=== PATIENT | female | born 1935 | race Caucasian/White ===

== ENCOUNTER 2018-05-25 13:17 | Inpatient (IN) | payer MEDICARE, OTHER ==
[~2018-05-25] VITALS: Ht 167.6 cm; Wt 60.9 kg
[~2018-05-25 13:17] MED LIST: ASPI-496 PO; ATOR40TA78 PO; CEFD300C37 PO; CEPH-368 PO; CHOL200074 PO; CIPR500T87 PO; CLOP75TA52 PO; FOLI-17 PO; FURO-92 PO; FURO40TA6 PO; GABA300C PO; GABA800T2 PO; HYDR-3237 PO; HYDR200T5 PO; ISOS30TA21 PO; LEVO75CA2 PO; LOSA50TA7 PO; METH2.5T PO; METO25TA35 PO; NAPR220C2 PO; OMEP-110 PO; OXYC10TA6 PO; POLY17PO5 PO; POTA10CA PO; ROPI2TAB6 PO; SPIR1TAB3 PO; TICA90TA PO; VITA1TAB19 PO
[2018-05-25 13:55] LABS: BASOPHILS # (AUTO) 0.01 x10^3/uL (0-0.1); BASOPHILS % (AUTO) 0 % (0-1); EOSINOPHILS # (AUTO) 0.06 x10^3/uL (0-0.4); EOSINOPHILS % (AUTO) 1 % (1-7); LYMPHOCYTES # (AUTO) 2.29 x10^3/uL (1-3.4); LYMPHOCYTES % (AUTO) 30 % (22-44); MD NO; MEAN CORPUSCULAR HEMOGLOBIN 30.9 pg (27.0-34.8); MEAN CORPUSCULAR HGB CONC 33.6 g/dL (32.4-35.8); MEAN CORPUSCULAR VOLUME 91.9 fL (80-100); MEAN PLATELET VOLUME 8.4 fL (7.4-10.4); MONOCYTES # (AUTO) 0.55 x10^3/uL (0.2-0.8); MONOCYTES % (AUTO) 7 % (2-9); NEUTROPHILS # (AUTO) 4.62 x10^3/uL (1.8-6.8); NEUTROPHILS % (AUTO) 61 % (42-75); PLATELET COUNT 232 x10^3/uL (130-400); RED BLOOD COUNT 4.22 x10^6/uL (3.82-5.3); RED CELL DISTRIBUTION WIDTH 13.8 % (9.6-15.2)
[2018-05-25 14:08] LABS: ALANINE AMINOTRANSFERASE 62 U/L (12-78); ALBUMIN 3.4 g/dL (3.4-5.0); ANION GAP 6 mmol/L (5-15); CALCIUM 7.7 mg/dL (8.5-10.1); CHLORIDE 111 mmol/L (98-107); CREATININE 0.95 mg/dL (0.55-1.02)
[2018-05-25 14:10] LABS: ALKALINE PHOSPHATASE 95 U/L (45-117); BILIRUBIN,TOTAL 0.7 mg/dL (0.2-1.0); TOTAL PROTEIN 6.7 g/dL (6.4-8.2)
[2018-05-25 14:13] LABS: TROPONIN I < 0.015 ng/mL (0.000-0.045)
[2018-05-25] MEDS ORDERED: POLYETHYLENE GLYCOL 17 GM PACKET PO PRN (15:00)
[2018-05-25] MEDS ORDERED: BISACODYL 10 MG SUPP PR PRN (15:00)
[2018-05-25] MEDS ORDERED: HYDROcodone/APAP 5/325 TABLET PO PRN (15:00)
[2018-05-25] MEDS ORDERED: SODIUM CHLORIDE 0.9% 1,000 ML IV SCH (15:00)
[2018-05-25] MEDS ORDERED: ACETAMINOPHEN 325 MG TABLET PO PRN (15:00)
[2018-05-25] MEDS ORDERED: ENALAPRILAT 1.25 MG/ML, 2ML IVPush PRN (15:00)
[2018-05-25] MEDS ORDERED: ONDANSETRON 2MG/ML, 2ML IVPush PRN (15:00)
[2018-05-25] MEDS: GABAPENTIN 300 MG CAPSULE PO SCH ×2 (16:00→20:19)
[2018-05-25 16:12] VITALS: BP 99/52
[2018-05-25] MEDS ORDERED: ENOXAPARIN 40 MG/0.4 ML SQ SCH (17:00)
[2018-05-25 17:25] VITALS: BP 132/64
[2018-05-25 17:27] VITALS: BP 123/58
[2018-05-25 17:28] VITALS: BP 128/56
[2018-05-25 17:30] VITALS: BP 102/47
[2018-05-25 18:36] LABS: TROPONIN I < 0.015 ng/mL (0.000-0.045)
[2018-05-25 20:11] VITALS: BP 111/57
[2018-05-25] MEDS: ROPINIROLE 1MG TABLET PO SCH (20:19)
[2018-05-25] MEDS ORDERED: DOCUSATE 100 MG CAPSULE PO PRN (21:00)
[2018-05-26 01:01] LABS: TROPONIN I < 0.015 ng/mL (0.000-0.045)
[2018-05-26 01:20] VITALS: BP 113/54
[2018-05-26 05:37] LABS: CALCIUM 8.2 mg/dL (8.5-10.1); CHLORIDE 112 mmol/L (98-107)
[2018-05-26 05:51] LABS: ANION GAP 6 mmol/L (5-15); CHOL/HDL RATIO 4.1; CHOLESTEROL, TOTAL 127 mg/dL (140-239); CREATININE 0.93 mg/dL (0.55-1.02); HDL CHOL % 24 % (28-40); HDL CHOLESTEROL (DIRECT) 31 mg/dL (40-60); LDL CHOLESTEROL,CALCULATED 55 mg/dL (54-169); LDL/HDL RATIO 1.8 (0.5-3.0); TRIGLYCERIDES 205 mg/dL (50-200); VLDL CHOLESTEROL 41 mg/dL (0-25)
[2018-05-26] MEDS ORDERED: MYCO500T PO (05:52)
[2018-05-26] MEDS ORDERED: ASPIRIN 325 MG TABLET EC PO SCH (06:00)
[2018-05-26] MEDS ORDERED: LEVOTHYROXINE 75 MCG TABLET PO SCH (06:00)
[2018-05-26 07:29] VITALS: BP 138/69
[2018-05-26] MEDS ORDERED: REGADENOSON 0.4 MG/5 ML SYRINGE ONE (07:35)
[2018-05-26] MEDS ORDERED: FOLIC ACID 1 MG TABLET PO SCH (09:00)
[2018-05-26] MEDS ORDERED: CHOLECALCIFEROL 1,000 UNIT TABLET PO SCH (09:00)
[2018-05-26] MEDS ORDERED: CLOPIDOGREL 75 MG TABLET PO SCH (09:00)
[2018-05-26] MEDS ORDERED: ISOSORBIDE DINITRATE 30 MG TABLET PO SCH (09:00)
[2018-05-26] MEDS ORDERED: TEMPLATE NON-FORMULARY MED. (Aspirin** (Aspir 81**) 81 MG) PO SCH (09:00)
[2018-05-26] MEDS ORDERED: ATORVASTATIN 40 MG TABLET PO SCH (09:00)
[2018-05-26] MEDS ORDERED: MULTIVITS,STRESS FORMULA 1 TABLET PO SCH (09:00)
[2018-05-26] MEDS: GABAPENTIN 300 MG CAPSULE PO SCH (11:04)
[2018-05-26] MEDS: ROPINIROLE 1MG TABLET PO SCH (11:06)
== END 2018-05-26 14:35 | disposition home or self-care (01) | DRG 309 ==
LOC: ED 14:40 → EDIP 14:41 → ED 14:42 → 5SO 16:08 → DCLOUNGE 05-26 14:21
PROVIDERS: ADMIT Hospitalist; ATTEND Hospitalist
DX: R00.1 Bradycardia, unspecified (principal); I50.32 Chronic diastolic (congestive) heart failure; I11.0 Hypertensive heart disease with heart failure; R07.9 Chest pain, unspecified; I25.10 Atherosclerotic heart disease of native coronary artery without angina pectoris; I25.2 Old myocardial infarction; E03.9 Hypothyroidism, unspecified; I34.0 Nonrheumatic mitral (valve) insufficiency; G25.81 Restless legs syndrome; E78.5 Hyperlipidemia, unspecified; K21.9 Gastro-esophageal reflux disease without esophagitis; M06.9 Rheumatoid arthritis, unspecified; Z66 Do not resuscitate; Z82.0 Family history of epilepsy and other diseases of the nervous system; Z82.49 Family history of ischemic heart disease and other diseases of the circulatory system; Z87.891 Personal history of nicotine dependence; Z83.3 Family history of diabetes mellitus; Z95.1 Presence of aortocoronary bypass graft; Z90.710 Acquired absence of both cervix and uterus; Z95.5 Presence of coronary angioplasty implant and graft; Z90.49 Acquired absence of other specified parts of digestive tract
CPT/HCPCS: 36415; 71045; 78452; 80048; 80053; 80061; 83735; 84443; 84484; 85025; 93005; 93017; 99285; G0378; J1650; J2785; A9502; C9898; J7030

== ENCOUNTER 2021-02-26 14:25 | Inpatient (IN) | payer MEDICARE, OTHER ==
[~2021-02-26] VITALS: Ht 165.1 cm; Wt 57.2 kg
[~2021-02-26 14:25] MED LIST changes: +ACID1TAB PO; -FOLI-17 PO; +FOLI1TAB32 PO; -GABA800T2 PO; +GABA800T5 PO; +GLUC1TAB53 PO; +LOSA50TA14 PO; -LOSA50TA7 PO; +MYCO500T PO
--- NOTE | 2021-02-26 15:52 | NUR ---
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
--- NOTE | 2021-02-26 16:00 | NUR ---
PT PLACED ON ALL ROOM MONITORING. PT CHILLED, AFEBRILE, WARM BLANKET PROVIDED. MARISELA WARMER AVAILABLE.
[2021-02-26 16:21] LABS: ALBUMIN 3.3 g/dL (3.4-5.0); ANION GAP 6 mmol/L (5-15); CALCIUM 8.4 mg/dL (8.5-10.1); CHLORIDE 102 mmol/L (98-107); CREATININE 0.84 mg/dL (0.55-1.02)
[2021-02-26 16:23] LABS: BASOPHILS % (AUTO) 0 % (0-1); EOSINOPHILS % (AUTO) 0 % (1-7); LYMPHOCYTES % (AUTO) 26 % (22-44); MEAN CORPUSCULAR HEMOGLOBIN 30.6 pg (27.0-34.8); MEAN CORPUSCULAR HGB CONC 34.5 g/dL (32.4-35.8); MEAN PLATELET VOLUME 8.4 fL (7.4-10.4); MONOCYTES % (AUTO) 10 % (2-9); NEUTROPHILS % (AUTO) 63 % (42-75); PLATELET COUNT 197 x10^3/uL (130-400); RED BLOOD COUNT 4.09 x10^6/uL (3.82-5.3)
--- NOTE | 2021-02-26 16:30 | NUR ---
PT ASSISTED UP TO BSC, ONE PERSON ASSIST.
[2021-02-26] MEDS ORDERED: DOXYCYCLINE 100 MG in DEXTROSE 5% 250 ML IV SCH (17:00)
[2021-02-26] MEDS ORDERED: CEFTRIAXONE 1,000 MG in DEXTROSE 5% 50 ML IVPB ONE (17:00)
[2021-02-26] MEDS ORDERED: ROPINIROLE 1MG TABLET PO ONE (17:30)
--- NOTE | 2021-02-26 17:30 | NUR ---
IV PLACED, BC X 1 DRAWN WITH START. MED REC COMPLETED TO BEST OF PT'S RECOLLECTION AND WITH PROVIDED LIST. PT AND FAMILY UPDATED ON POC. CALL LIGHT WITHIN REACH.
--- NOTE | 2021-02-26 17:58 | NUR ---
COVID SWAB COLLECTED, WALKED TO LAB. ROCEPHIN INFUSING AFTER BC X 2 CONFIRMED DRAWN.
[2021-02-26] MEDS ORDERED: SODIUM CHLORIDE 0.9% 1,000 ML IV SCH (18:00)
[2021-02-26] MEDS ORDERED: GUAIFENESIN/DM 200-20MG, 10ML UDC PO PRN (18:00)
[2021-02-26] MEDS ORDERED: ONDANSETRON ODT 4 MG PO PRN (18:00)
[2021-02-26] MEDS ORDERED: ENALAPRILAT 1.25 MG/ML, 2ML IVPush PRN (18:00)
[2021-02-26] MEDS ORDERED: ONDANSETRON 2MG/ML, 2ML IVPush PRN (18:00)
--- NOTE | 2021-02-26 18:00 | NUR ---
ATTEMPT TO CALL REPORT.
--- NOTE | 2021-02-26 18:27 | NUR ---
REPORT TO GEORGINA [place] READY FOR TRANSPORT TO FLOOR.
[2021-02-26] MEDS ORDERED: DOXYCYCLINE 100 MG in DEXTROSE 5% 250 ML IV ONE (20:00)
[2021-02-26] MEDS: ENOXAPARIN 40 MG/0.4 ML SQ SCH (20:05)
[2021-02-26] MEDS: OMEPRAZOLE 20 MG CAPSULE.DR PO SCH (20:05)
[2021-02-26] MEDS: GABAPENTIN 300 MG CAPSULE PO SCH (20:05)
[2021-02-26 20:30] VITALS: BP 108/69
[2021-02-27] MEDS: ACETAMINOPHEN 325 MG TABLET PO PRN ×2 (00:02→21:25)
[2021-02-27 00:03] VITALS: BP 118/50
[2021-02-27 05:33] LABS: MEAN CORPUSCULAR HEMOGLOBIN 30.9 pg (27.0-34.8); MEAN CORPUSCULAR HGB CONC 34.7 g/dL (32.4-35.8); MEAN PLATELET VOLUME 8.3 fL (7.4-10.4); PLATELET COUNT 155 x10^3/uL (130-400); RED BLOOD COUNT 3.38 x10^6/uL (3.82-5.3)
[2021-02-27 05:42] LABS: ANION GAP 8 mmol/L (5-15); CALCIUM 7.5 mg/dL (8.5-10.1); CHLORIDE 104 mmol/L (98-107)
[2021-02-27 05:44] LABS: CREATININE 0.75 mg/dL (0.55-1.02)
[2021-02-27 06:24] LABS: BAND#(MANUAL) 0.03 x10^3/uL; BANDS%(MANUAL) 1 % (0-7); EOS#(MANUAL) 0.03 x10^3/uL (0.0-0.4); EOS% (MANUAL) 1 % (1-7); LYMPH#(MANUAL) 1.62 x10^3/uL (1-3.4); LYMPHS% (MANUAL) 58 % (22-44); MONOS#(MANUAL) 0.25 x10^3/uL (0.3-2.7); MONOS% (MANUAL) 9 % (2-9); SEG#(MANUAL) 0.87 x10^3/uL (1.8-6.8); SEGS% (MANUAL) 31 % (42-75)
[2021-02-27 06:27] LABS: <PLATELET ESTIMATE> ADEQUATE; <PLT MORPHOLOGY> NORMAL PLT MORPH; <RBC MORPHOLOGY> NORMAL
[2021-02-27] MEDS: GABAPENTIN 300 MG CAPSULE PO SCH ×4 (06:40→21:22)
[2021-02-27] MEDS: OMEPRAZOLE 20 MG CAPSULE.DR PO SCH ×2 (06:40→16:11)
[2021-02-27 07:41] VITALS: BP 128/59
[2021-02-27] MEDS: POTASSIUM CHLORIDE 20 MEQ TAB.ER.PRT PO SCH (09:25)
[2021-02-27] MEDS: FOLIC ACID 1 MG TABLET PO SCH (09:26)
[2021-02-27] MEDS: ASPIRIN 81 MG TABLET EC PO SCH (09:26)
[2021-02-27] MEDS: ISOSORBIDE DINITRATE 30 MG TABLET PO SCH (09:47)
[2021-02-27] MEDS: DOXYCYCLINE 100 MG in DEXTROSE 5% 250 ML IV SCH ×2 (09:50→21:23)
[2021-02-27 12:50] VITALS: BP 89/54
[2021-02-27] MEDS: CEFTRIAXONE 1,000 MG in DEXTROSE 5% 50 ML IVPB SCH (18:27)
[2021-02-27 20:00] VITALS: BP 135/56
[2021-02-27] MEDS: ENOXAPARIN 40 MG/0.4 ML SQ SCH (21:23)
[2021-02-27] MEDS: MELATONIN 5 MG TABLET PO PRN (21:25)
[2021-02-28 01:00] VITALS: BP 127/62
[2021-02-28 05:27] LABS: MEAN CORPUSCULAR HEMOGLOBIN 30.6 pg (27.0-34.8); MEAN PLATELET VOLUME 8.9 fL (7.4-10.4); PLATELET COUNT 147 x10^3/uL (130-400); RED BLOOD COUNT 3.79 x10^6/uL (3.82-5.3); RED CELL DISTRIBUTION WIDTH 13.2 % (9.6-15.2)
[2021-02-28] MEDS: GABAPENTIN 300 MG CAPSULE PO SCH ×4 (06:11→21:13)
[2021-02-28] MEDS: OMEPRAZOLE 20 MG CAPSULE.DR PO SCH ×2 (06:11→16:21)
[2021-02-28 06:34] LABS: BAND#(MANUAL) 0.02 x10^3/uL; BANDS%(MANUAL) 1 % (0-7); LYMPH#(MANUAL) 1.46 x10^3/uL (1-3.4); LYMPHS% (MANUAL) 61 % (22-44); MONOS#(MANUAL) 0.14 x10^3/uL (0.3-2.7); MONOS% (MANUAL) 6 % (2-9); SEG#(MANUAL) 0.77 x10^3/uL (1.8-6.8); SEGS% (MANUAL) 32 % (42-75)
[2021-02-28 06:35] LABS: <PLATELET ESTIMATE> ADEQUATE; <PLT MORPHOLOGY> NORMAL PLT MORPH; <RBC MORPHOLOGY> NORMAL
[2021-02-28 06:37] VITALS: BP 160/60
[2021-02-28 08:57] LABS: ANION GAP 8 mmol/L (5-15); CALCIUM 8.3 mg/dL (8.5-10.1); CHLORIDE 108 mmol/L (98-107)
[2021-02-28 09:42] VITALS: BP 189/61
[2021-02-28 09:43] VITALS: BP 170/67
[2021-02-28] MEDS: POTASSIUM CHLORIDE 20 MEQ TAB.ER.PRT PO SCH (10:27)
[2021-02-28] MEDS: FOLIC ACID 1 MG TABLET PO SCH (10:28)
[2021-02-28] MEDS: ASPIRIN 81 MG TABLET EC PO SCH (10:28)
[2021-02-28] MEDS: DOXYCYCLINE 100 MG in DEXTROSE 5% 250 ML IV SCH ×2 (10:34→21:13)
[2021-02-28] MEDS: ISOSORBIDE DINITRATE 30 MG TABLET PO SCH (11:28)
[2021-02-28] MEDS: GUAIFENESIN/DM 200-20MG, 10ML UDC PO SCH ×2 (13:26→19:48)
[2021-02-28] MEDS: BENZONATATE 100 MG CAPSULE PO SCH ×3 (13:26→21:13)
[2021-02-28 15:16] VITALS: BP 110/54
[2021-02-28] MEDS: CEFTRIAXONE 1,000 MG in DEXTROSE 5% 50 ML IVPB SCH (18:57)
[2021-02-28 19:41] VITALS: BP 110/52
[2021-02-28] MEDS: ACETAMINOPHEN 325 MG TABLET PO PRN (19:48)
[2021-02-28] MEDS: ENOXAPARIN 40 MG/0.4 ML SQ SCH (19:48)
[2021-03-01 00:42] VITALS: BP 119/59
[2021-03-01] MEDS: GUAIFENESIN/DM 200-20MG, 10ML UDC PO SCH ×4 (01:30→20:12)
[2021-03-01 05:32] LABS: MEAN CORPUSCULAR HEMOGLOBIN 31.1 pg (27.0-34.8); MEAN CORPUSCULAR HGB CONC 34.8 g/dL (32.4-35.8); PLATELET COUNT 152 x10^3/uL (130-400); RED BLOOD COUNT 3.66 x10^6/uL (3.82-5.3); RED CELL DISTRIBUTION WIDTH 13.2 % (9.6-15.2)
[2021-03-01 05:43] LABS: ANION GAP 9 mmol/L (5-15); CALCIUM 8.3 mg/dL (8.5-10.1); CHLORIDE 107 mmol/L (98-107); CREATININE 0.81 mg/dL (0.55-1.02)
[2021-03-01] MEDS: GABAPENTIN 300 MG CAPSULE PO SCH ×4 (06:00→20:12)
[2021-03-01] MEDS: OMEPRAZOLE 20 MG CAPSULE.DR PO SCH ×2 (06:00→15:51)
[2021-03-01 06:26] LABS: SEG#(MANUAL) 0.96 x10^3/uL (1.8-6.8); SEGS% (MANUAL) 37 % (42-75)
[2021-03-01 06:27] LABS: <PLATELET ESTIMATE> ADEQUATE; <PLT MORPHOLOGY> NORMAL PLT MORPH; <RBC MORPHOLOGY> NORMAL; LYMPHS% (MANUAL) 54 % (22-44); MONOS#(MANUAL) 0.23 x10^3/uL (0.3-2.7); MONOS% (MANUAL) 9 % (2-9)
[2021-03-01] MEDS ORDERED: DEXTROSE 50%, 50ML SYRINGE IVPush ONE (08:00)
[2021-03-01 08:29] VITALS: BP 123/61
[2021-03-01] MEDS: ISOSORBIDE DINITRATE 30 MG TABLET PO SCH (09:00)
[2021-03-01] MEDS ORDERED: REMDESIVIR 200 MG in SODIUM CHLORIDE 0.9% 250 ML IVPB ONE (10:00)
[2021-03-01] MEDS ORDERED: ISOSORBIDE DINITRATE 20 MG TABLET ONE (10:41)
[2021-03-01] MEDS: DOXYCYCLINE 100 MG in DEXTROSE 5% 250 ML IV SCH (10:56)
[2021-03-01] MEDS: ASPIRIN 81 MG TABLET EC PO SCH (10:56)
[2021-03-01] MEDS: BENZONATATE 100 MG CAPSULE PO SCH ×3 (10:57→20:12)
[2021-03-01] MEDS: FOLIC ACID 1 MG TABLET PO SCH (10:57)
[2021-03-01] MEDS: POTASSIUM CHLORIDE 20 MEQ TAB.ER.PRT PO SCH (10:57)
[2021-03-01] MEDS: DEXAMETHASONE 4 MG TABLET PO SCH (10:58)
[2021-03-01] MEDS ORDERED: OMNIPAQUE 350 MG/ML, 100ML BOTTLE ONE (13:26)
[2021-03-01 15:59] VITALS: BP 134/62
[2021-03-01] MEDS: CEFTRIAXONE 1,000 MG in DEXTROSE 5% 50 ML IVPB SCH (18:00)
[2021-03-01 19:35] VITALS: BP 135/69
[2021-03-01] MEDS: DOXYCYCLINE 100MG TABLET PO SCH (20:12)
[2021-03-01] MEDS: MELATONIN 5 MG TABLET PO PRN (20:12)
[2021-03-01] MEDS: ENOXAPARIN 40 MG/0.4 ML SQ SCH (20:12)
[2021-03-02 00:34] VITALS: BP 123/53
[2021-03-02] MEDS: GUAIFENESIN/DM 200-20MG, 10ML UDC PO SCH ×4 (03:01→22:06)
[2021-03-02] MEDS: GABAPENTIN 300 MG CAPSULE PO SCH ×4 (06:12→22:06)
[2021-03-02] MEDS: OMEPRAZOLE 20 MG CAPSULE.DR PO SCH ×2 (06:12→15:14)
[2021-03-02 06:25] LABS: ALBUMIN 2.5 g/dL (3.4-5.0); ANION GAP 6 mmol/L (5-15); CALCIUM 8.2 mg/dL (8.5-10.1); CHLORIDE 110 mmol/L (98-107)
[2021-03-02 06:28] LABS: ALANINE AMINOTRANSFERASE 43 U/L (12-78); ALKALINE PHOSPHATASE 58 U/L (45-117); BILIRUBIN,TOTAL 0.4 mg/dL (0.2-1.0); CREATININE 0.56 mg/dL (0.55-1.02); TOTAL PROTEIN 6.2 g/dL (6.4-8.2)
[2021-03-02 07:35] VITALS: BP 155/62
[2021-03-02] MEDS ORDERED: ISOSORBIDE DINITRATE 20 MG TABLET ONE (08:15)
[2021-03-02] MEDS: FOLIC ACID 1 MG TABLET PO SCH (08:22)
[2021-03-02] MEDS: DEXAMETHASONE 4 MG TABLET PO SCH (08:22)
[2021-03-02] MEDS: ASPIRIN 81 MG TABLET EC PO SCH (08:22)
[2021-03-02] MEDS: DOXYCYCLINE 100MG TABLET PO SCH ×2 (08:22→22:07)
[2021-03-02] MEDS: POTASSIUM CHLORIDE 20 MEQ TAB.ER.PRT PO SCH (08:22)
[2021-03-02] MEDS: BENZONATATE 100 MG CAPSULE PO SCH ×3 (08:23→22:06)
[2021-03-02] MEDS: ISOSORBIDE DINITRATE 30 MG TABLET PO SCH (08:24)
[2021-03-02] MEDS ORDERED: REMDESIVIR 100 MG in SODIUM CHLORIDE 0.9% 250 ML IVPB SCH (10:00)
[2021-03-02 10:06] LABS: D-DIMER 0.7 ug/mlFEU (0.00-0.52)
[2021-03-02] MEDS ORDERED: DEXTROSE 50%, 50ML SYRINGE ONE (11:09)
[2021-03-02] MEDS: ZINC SULFATE 220 MG CAPSULE PO SCH (11:50)
[2021-03-02] MEDS: CHOLECALCIFEROL 5,000u TAB PO SCH (11:50)
[2021-03-02] MEDS: THIAMINE 100MG TABLET PO SCH (11:50)
[2021-03-02 13:56] VITALS: BP 117/53
[2021-03-02] MEDS: DEXAMETHASONE 4 MG/ML, 1ML IVPush SCH (15:14)
[2021-03-02] MEDS: REMDESIVIR 100 MG in SODIUM CHLORIDE 0.9% 250 ML IVPB SCH (15:15)
[2021-03-02] MEDS: CEFTRIAXONE 1,000 MG in DEXTROSE 5% 50 ML IVPB SCH (17:35)
[2021-03-02 20:06] VITALS: BP 118/58
[2021-03-02] MEDS: ENOXAPARIN 40 MG/0.4 ML SQ SCH (22:06)
[2021-03-02] MEDS: ASCORBIC ACID 500 MG TABLET PO SCH (22:06)
[2021-03-02] MEDS: MELATONIN 5 MG TABLET PO PRN (22:07)
[2021-03-03 02:04] VITALS: BP 119/58
[2021-03-03] MEDS: GUAIFENESIN/DM 200-20MG, 10ML UDC PO SCH ×4 (02:11→18:03)
[2021-03-03] MEDS: OMEPRAZOLE 20 MG CAPSULE.DR PO SCH ×2 (06:04→17:00)
[2021-03-03] MEDS: GABAPENTIN 300 MG CAPSULE PO SCH ×4 (06:04→21:58)
[2021-03-03 06:37] LABS: MEAN CORPUSCULAR HEMOGLOBIN 30.6 pg (27.0-34.8); MEAN CORPUSCULAR HGB CONC 33.8 g/dL (32.4-35.8); MEAN PLATELET VOLUME 8.2 fL (7.4-10.4); PLATELET COUNT 201 x10^3/uL (130-400); RED BLOOD COUNT 3.64 x10^6/uL (3.82-5.3); RED CELL DISTRIBUTION WIDTH 13.1 % (9.6-15.2)
[2021-03-03 06:50] LABS: CHLORIDE 109 mmol/L (98-107)
[2021-03-03 07:03] LABS: ALANINE AMINOTRANSFERASE 53 U/L (12-78); ALBUMIN 2.4 g/dL (3.4-5.0); ALKALINE PHOSPHATASE 58 U/L (45-117); ANION GAP 7 mmol/L (5-15); BILIRUBIN,TOTAL 0.4 mg/dL (0.2-1.0); CALCIUM 8.5 mg/dL (8.5-10.1); CREATININE 0.58 mg/dL (0.55-1.02); TOTAL PROTEIN 6.1 g/dL (6.4-8.2)
[2021-03-03 07:43] LABS: BAND#(MANUAL) 0.08 x10^3/uL; BANDS%(MANUAL) 3 % (0-7); LYMPH#(MANUAL) 0.92 x10^3/uL (1-3.4); LYMPHS% (MANUAL) 33 % (22-44); MONOS#(MANUAL) 0.11 x10^3/uL (0.3-2.7); MONOS% (MANUAL) 4 % (2-9); SEG#(MANUAL) 1.68 x10^3/uL (1.8-6.8); SEGS% (MANUAL) 60 % (42-75)
[2021-03-03 07:44] LABS: <PLATELET ESTIMATE> ADEQUATE; <PLT MORPHOLOGY> NORMAL PLT MORPH; ANISOCYTOSIS 1+; ECHINOCYTES 1+
[2021-03-03] MEDS ORDERED: ISOSORBIDE DINITRATE 20 MG TABLET ONE (08:52)
[2021-03-03] MEDS: FOLIC ACID 1 MG TABLET PO SCH (09:00)
[2021-03-03] MEDS: ISOSORBIDE DINITRATE 30 MG TABLET PO SCH (09:00)
[2021-03-03 09:05] VITALS: BP 146/62
[2021-03-03] MEDS: BENZONATATE 100 MG CAPSULE PO SCH ×3 (09:30→21:58)
[2021-03-03] MEDS: DOXYCYCLINE 100MG TABLET PO SCH ×2 (09:30→21:59)
[2021-03-03] MEDS: ASPIRIN 81 MG TABLET EC PO SCH (09:30)
[2021-03-03] MEDS: THIAMINE 100MG TABLET PO SCH (09:30)
[2021-03-03] MEDS: POTASSIUM CHLORIDE 20 MEQ TAB.ER.PRT PO SCH (09:30)
[2021-03-03] MEDS: DEXAMETHASONE 4 MG/ML, 1ML IVPush SCH (09:30)
[2021-03-03] MEDS: ASCORBIC ACID 500 MG TABLET PO SCH ×2 (09:30→18:03)
[2021-03-03] MEDS: CHOLECALCIFEROL 5,000u TAB PO SCH (09:30)
[2021-03-03] MEDS: ZINC SULFATE 220 MG CAPSULE PO SCH (09:31)
[2021-03-03] MEDS: REMDESIVIR 100 MG in SODIUM CHLORIDE 0.9% 250 ML IVPB SCH (15:00)
[2021-03-03 15:20] VITALS: BP 131/55
[2021-03-03] MEDS: CEFTRIAXONE 1,000 MG in DEXTROSE 5% 50 ML IVPB SCH (18:03)
[2021-03-03 21:44] VITALS: BP 146/65
[2021-03-03] MEDS: ENOXAPARIN 40 MG/0.4 ML SQ SCH (21:58)
[2021-03-03] MEDS: ROPINIROLE 1MG TABLET PO SCH (22:29)
[2021-03-04 01:27] VITALS: BP 139/60
[2021-03-04] MEDS: GUAIFENESIN/DM 200-20MG, 10ML UDC PO SCH ×4 (01:58→16:59)
[2021-03-04 05:43] LABS: BASOPHILS % (AUTO) 0 % (0-1); EOSINOPHILS % (AUTO) 0 % (1-7); LYMPHOCYTES % (AUTO) 11 % (22-44); MEAN CORPUSCULAR HEMOGLOBIN 30.8 pg (27.0-34.8); MEAN CORPUSCULAR HGB CONC 34.5 g/dL (32.4-35.8); MEAN PLATELET VOLUME 8.2 fL (7.4-10.4); MONOCYTES % (AUTO) 6 % (2-9); NEUTROPHILS % (AUTO) 83 % (42-75); PLATELET COUNT 224 x10^3/uL (130-400); RED BLOOD COUNT 3.63 x10^6/uL (3.82-5.3); RED CELL DISTRIBUTION WIDTH 13.3 % (9.6-15.2)
[2021-03-04 05:56] LABS: ALBUMIN 2.3 g/dL (3.4-5.0); ANION GAP 6 mmol/L (5-15); CALCIUM 8.2 mg/dL (8.5-10.1); CHLORIDE 109 mmol/L (98-107)
[2021-03-04 05:59] LABS: ALANINE AMINOTRANSFERASE 75 U/L (12-78); ALKALINE PHOSPHATASE 61 U/L (45-117); BILIRUBIN,TOTAL 0.4 mg/dL (0.2-1.0); CREATININE 0.57 mg/dL (0.55-1.02)
[2021-03-04 06:11] LABS: D-DIMER 0.62 ug/mlFEU (0.00-0.52)
[2021-03-04] MEDS: OMEPRAZOLE 20 MG CAPSULE.DR PO SCH ×2 (06:23→16:00)
[2021-03-04] MEDS: GABAPENTIN 300 MG CAPSULE PO SCH ×5 (06:23→20:39)
[2021-03-04 07:45] VITALS: BP 165/74
[2021-03-04] MEDS: ASCORBIC ACID 500 MG TABLET PO SCH ×2 (08:00→16:59)
[2021-03-04] MEDS: POTASSIUM CHLORIDE 20 MEQ TAB.ER.PRT PO SCH ×2 (08:00→09:29)
[2021-03-04] MEDS: BENZONATATE 100 MG CAPSULE PO SCH ×4 (09:00→20:39)
[2021-03-04] MEDS: THIAMINE 100MG TABLET PO SCH ×2 (09:00→09:29)
[2021-03-04] MEDS: FOLIC ACID 1 MG TABLET PO SCH ×2 (09:00→09:29)
[2021-03-04] MEDS: ASPIRIN 81 MG TABLET EC PO SCH ×2 (09:00→09:29)
[2021-03-04] MEDS: CHOLECALCIFEROL 5,000u TAB PO SCH ×2 (09:00→09:29)
[2021-03-04] MEDS: DEXAMETHASONE 4 MG/ML, 1ML IVPush SCH ×2 (09:00→09:30)
[2021-03-04] MEDS: ZINC SULFATE 220 MG CAPSULE PO SCH ×2 (09:00→09:29)
[2021-03-04] MEDS: DOXYCYCLINE 100MG TABLET PO SCH ×3 (09:00→20:39)
[2021-03-04] MEDS: ISOSORBIDE DINITRATE 30 MG TABLET PO SCH (09:00)
[2021-03-04] MEDS ORDERED: ISOSORBIDE DINITRATE 20 MG TABLET ONE (09:12)
[2021-03-04 13:43] VITALS: BP 143/63
[2021-03-04] MEDS: ROPINIROLE 1MG TABLET PO SCH (16:59)
[2021-03-04] MEDS: REMDESIVIR 100 MG in SODIUM CHLORIDE 0.9% 250 ML IVPB SCH (17:08)
[2021-03-04 18:36] VITALS: BP 155/73
[2021-03-04] MEDS: ENOXAPARIN 40 MG/0.4 ML SQ SCH (20:28)
[2021-03-04] MEDS: CEFTRIAXONE 1,000 MG in DEXTROSE 5% 50 ML IVPB SCH (20:29)
[2021-03-04 20:35] VITALS: BP 164/67
[2021-03-05 00:11] VITALS: BP 139/65
[2021-03-05] MEDS: GUAIFENESIN/DM 200-20MG, 10ML UDC PO SCH ×4 (01:21→19:30)
[2021-03-05 05:20] LABS: BASOPHILS % (AUTO) 0 % (0-1); EOSINOPHILS % (AUTO) 0 % (1-7); LYMPHOCYTES % (AUTO) 10 % (22-44); MEAN CORPUSCULAR HEMOGLOBIN 30.4 pg (27.0-34.8); MEAN PLATELET VOLUME 7.7 fL (7.4-10.4); MONOCYTES % (AUTO) 7 % (2-9); NEUTROPHILS % (AUTO) 83 % (42-75); PLATELET COUNT 255 x10^3/uL (130-400); RED BLOOD COUNT 4.06 x10^6/uL (3.82-5.3); RED CELL DISTRIBUTION WIDTH 13.4 % (9.6-15.2)
[2021-03-05 05:31] LABS: ALANINE AMINOTRANSFERASE 72 U/L (12-78); ALBUMIN 2.6 g/dL (3.4-5.0); ANION GAP 8 mmol/L (5-15); CHLORIDE 107 mmol/L (98-107)
[2021-03-05] MEDS: OMEPRAZOLE 20 MG CAPSULE.DR PO SCH ×2 (05:32→16:53)
[2021-03-05] MEDS: GABAPENTIN 300 MG CAPSULE PO SCH ×4 (05:32→21:00)
[2021-03-05 05:34] LABS: ALKALINE PHOSPHATASE 77 U/L (45-117); BILIRUBIN,TOTAL 0.4 mg/dL (0.2-1.0); TOTAL PROTEIN 6.3 g/dL (6.4-8.2)
[2021-03-05] MEDS: ISOSORBIDE DINITRATE 30 MG TABLET PO SCH (09:00)
[2021-03-05] MEDS ORDERED: ISOSORBIDE DINITRATE 20 MG TABLET ONE (09:20)
[2021-03-05] MEDS: DEXAMETHASONE 4 MG/ML, 1ML IVPush SCH (09:49)
[2021-03-05] MEDS: ROPINIROLE 1MG TABLET PO SCH (09:49)
[2021-03-05] MEDS: FUROSEMIDE 20 MG/2 ML IV SCH (09:49)
[2021-03-05] MEDS: THIAMINE 100MG TABLET PO SCH (09:50)
[2021-03-05] MEDS: BENZONATATE 100 MG CAPSULE PO SCH ×3 (09:50→21:00)
[2021-03-05] MEDS: ASCORBIC ACID 500 MG TABLET PO SCH ×2 (09:50→16:52)
[2021-03-05] MEDS: DOXYCYCLINE 100MG TABLET PO SCH ×2 (09:52→21:00)
[2021-03-05] MEDS: ASPIRIN 81 MG TABLET EC PO SCH (09:52)
[2021-03-05] MEDS: CHOLECALCIFEROL 5,000u TAB PO SCH (09:52)
[2021-03-05] MEDS: ZINC SULFATE 220 MG CAPSULE PO SCH (09:52)
[2021-03-05] MEDS: POTASSIUM CHLORIDE 20 MEQ TAB.ER.PRT PO SCH (09:52)
[2021-03-05] MEDS: FOLIC ACID 1 MG TABLET PO SCH (09:53)
[2021-03-05 10:05] VITALS: BP 169/78
[2021-03-05 13:37] VITALS: BP 106/64
[2021-03-05] MEDS: REMDESIVIR 100 MG in SODIUM CHLORIDE 0.9% 250 ML IVPB SCH (16:51)
[2021-03-05] MEDS: CEFTRIAXONE 1,000 MG in DEXTROSE 5% 50 ML IVPB SCH (18:10)
[2021-03-05 20:51] VITALS: BP 131/69
[2021-03-05] MEDS: ENOXAPARIN 40 MG/0.4 ML SQ SCH (21:00)
[2021-03-06 00:44] VITALS: BP 166/72
[2021-03-06] MEDS: GUAIFENESIN/DM 200-20MG, 10ML UDC PO SCH ×4 (01:23→21:39)
[2021-03-06] MEDS: GABAPENTIN 300 MG CAPSULE PO SCH ×4 (06:07→21:29)
[2021-03-06] MEDS: OMEPRAZOLE 20 MG CAPSULE.DR PO SCH ×2 (06:08→16:15)
[2021-03-06 07:38] VITALS: BP 142/67
[2021-03-06] MEDS ORDERED: ROPINIROLE 0.5MG TABLET ONE (08:17)
[2021-03-06] MEDS: DEXAMETHASONE 4 MG/ML, 1ML IVPush SCH (08:38)
[2021-03-06] MEDS: POTASSIUM CHLORIDE 20 MEQ TAB.ER.PRT PO SCH (08:38)
[2021-03-06] MEDS: DOXYCYCLINE 100MG TABLET PO SCH ×2 (08:38→21:28)
[2021-03-06] MEDS: FUROSEMIDE 20 MG/2 ML IV SCH (08:38)
[2021-03-06] MEDS: FOLIC ACID 1 MG TABLET PO SCH (08:39)
[2021-03-06] MEDS: ISOSORBIDE DINITRATE 30 MG TABLET PO SCH (08:39)
[2021-03-06] MEDS: CHOLECALCIFEROL 5,000u TAB PO SCH (08:39)
[2021-03-06] MEDS: BENZONATATE 100 MG CAPSULE PO SCH ×3 (08:39→21:39)
[2021-03-06] MEDS: ROPINIROLE 1MG TABLET PO SCH (08:40)
[2021-03-06] MEDS: ASPIRIN 81 MG TABLET EC PO SCH (08:40)
[2021-03-06] MEDS: THIAMINE 100MG TABLET PO SCH (08:40)
[2021-03-06] MEDS: ZINC SULFATE 220 MG CAPSULE PO SCH (08:41)
[2021-03-06] MEDS: ASCORBIC ACID 500 MG TABLET PO SCH ×2 (08:41→16:15)
[2021-03-06 10:34] LABS: BASOPHILS % (AUTO) 0 % (0-1); EOSINOPHILS % (AUTO) 0 % (1-7); LYMPHOCYTES % (AUTO) 6 % (22-44); MEAN CORPUSCULAR HEMOGLOBIN 30.4 pg (27.0-34.8); MEAN CORPUSCULAR HGB CONC 34.2 g/dL (32.4-35.8); MEAN PLATELET VOLUME 7.6 fL (7.4-10.4); MONOCYTES % (AUTO) 4 % (2-9); NEUTROPHILS % (AUTO) 89 % (42-75); PLATELET COUNT 303 x10^3/uL (130-400); RED BLOOD COUNT 4.24 x10^6/uL (3.82-5.3); RED CELL DISTRIBUTION WIDTH 13.1 % (9.6-15.2)
[2021-03-06 10:40] LABS: ALBUMIN 2.6 g/dL (3.4-5.0); ANION GAP 10 mmol/L (5-15); CALCIUM 8.8 mg/dL (8.5-10.1); CHLORIDE 101 mmol/L (98-107)
[2021-03-06 10:42] LABS: CREATININE 0.55 mg/dL (0.55-1.02)
[2021-03-06] MEDS: CEFTRIAXONE 1,000 MG in DEXTROSE 5% 50 ML IVPB SCH (17:33)
[2021-03-06] MEDS: ENOXAPARIN 40 MG/0.4 ML SQ SCH (21:36)
[2021-03-06 21:39] VITALS: BP 135/63
[2021-03-06] MEDS: DOCUSATE 100 MG CAPSULE PO SCH (21:39)
[2021-03-07] MEDS: GUAIFENESIN/DM 200-20MG, 10ML UDC PO SCH ×4 (03:05→20:59)
[2021-03-07 03:15] VITALS: BP_SYST 130; BP_SYST 164; BP_DIAS 64; BP_DIAS 71
[2021-03-07] MEDS: GABAPENTIN 300 MG CAPSULE PO SCH ×4 (05:29→21:10)
[2021-03-07] MEDS: OMEPRAZOLE 20 MG CAPSULE.DR PO SCH ×2 (05:30→16:11)
[2021-03-07] MEDS: DOCUSATE 100 MG CAPSULE PO SCH ×2 (09:00→21:10)
[2021-03-07] MEDS: FUROSEMIDE 20 MG/2 ML IV SCH (09:25)
[2021-03-07] MEDS: DEXAMETHASONE 4 MG/ML, 1ML IVPush SCH (09:25)
[2021-03-07] MEDS: ISOSORBIDE DINITRATE 30 MG TABLET PO SCH (09:30)
[2021-03-07] MEDS: POTASSIUM CHLORIDE 20 MEQ TAB.ER.PRT PO SCH (09:30)
[2021-03-07] MEDS: ASPIRIN 81 MG TABLET EC PO SCH (09:30)
[2021-03-07] MEDS: DOXYCYCLINE 100MG TABLET PO SCH ×2 (09:30→21:10)
[2021-03-07] MEDS: CHOLECALCIFEROL 5,000u TAB PO SCH (09:34)
[2021-03-07] MEDS: BENZONATATE 100 MG CAPSULE PO SCH ×3 (09:34→21:10)
[2021-03-07] MEDS: FOLIC ACID 1 MG TABLET PO SCH (09:34)
[2021-03-07] MEDS: ZINC SULFATE 220 MG CAPSULE PO SCH (09:34)
[2021-03-07] MEDS: ASCORBIC ACID 500 MG TABLET PO SCH ×2 (09:34→16:10)
[2021-03-07] MEDS: THIAMINE 100MG TABLET PO SCH (09:34)
[2021-03-07] MEDS: ROPINIROLE 1MG TABLET PO SCH (11:00)
[2021-03-07 12:00] VITALS: BP 97/49
[2021-03-07 12:45] VITALS: BP 97/56
[2021-03-07 13:29] VITALS: BP 101/55
[2021-03-07] MEDS: CEFTRIAXONE 1,000 MG in DEXTROSE 5% 50 ML IVPB SCH (17:21)
[2021-03-07] MEDS: ACETAMINOPHEN 325 MG TABLET PO PRN ×2 (17:31→21:14)
[2021-03-07 18:37] VITALS: BP 124/61
[2021-03-07] MEDS: ENOXAPARIN 40 MG/0.4 ML SQ SCH (21:17)
[2021-03-08 02:00] VITALS: BP 135/72
[2021-03-08] MEDS: GUAIFENESIN/DM 200-20MG, 10ML UDC PO SCH ×6 (02:11→20:30)
[2021-03-08] MEDS: OMEPRAZOLE 20 MG CAPSULE.DR PO SCH ×2 (05:19→17:44)
[2021-03-08] MEDS: GABAPENTIN 300 MG CAPSULE PO SCH ×4 (05:20→19:55)
[2021-03-08] MEDS: ACETAMINOPHEN 325 MG TABLET PO PRN (05:20)
[2021-03-08 07:18] LABS: BASOPHILS % (AUTO) 0 % (0-1); EOSINOPHILS % (AUTO) 0 % (1-7); LYMPHOCYTES % (AUTO) 7 % (22-44); MEAN CORPUSCULAR HEMOGLOBIN 30.2 pg (27.0-34.8); MEAN CORPUSCULAR HGB CONC 33.8 g/dL (32.4-35.8); MEAN PLATELET VOLUME 7.9 fL (7.4-10.4); MONOCYTES % (AUTO) 4 % (2-9); NEUTROPHILS % (AUTO) 89 % (42-75); PLATELET COUNT 317 x10^3/uL (130-400); RED BLOOD COUNT 4.25 x10^6/uL (3.82-5.3); RED CELL DISTRIBUTION WIDTH 13.3 % (9.6-15.2)
[2021-03-08 07:19] LABS: ANION GAP 5 mmol/L (5-15); CALCIUM 8.2 mg/dL (8.5-10.1); CHLORIDE 103 mmol/L (98-107); CREATININE 0.56 mg/dL (0.55-1.02)
[2021-03-08 07:56] VITALS: BP 121/56
[2021-03-08] MEDS: DOCUSATE 100 MG CAPSULE PO SCH ×2 (09:49→19:54)
[2021-03-08] MEDS: ISOSORBIDE DINITRATE 30 MG TABLET PO SCH (09:49)
[2021-03-08] MEDS: ZINC SULFATE 220 MG CAPSULE PO SCH (09:49)
[2021-03-08] MEDS: ROPINIROLE 1MG TABLET PO SCH (09:50)
[2021-03-08] MEDS: POTASSIUM CHLORIDE 20 MEQ TAB.ER.PRT PO SCH (09:50)
[2021-03-08] MEDS: DEXAMETHASONE 4 MG/ML, 1ML IVPush SCH (09:50)
[2021-03-08] MEDS: BENZONATATE 100 MG CAPSULE PO SCH ×3 (09:50→19:54)
[2021-03-08] MEDS: CHOLECALCIFEROL 5,000u TAB PO SCH (09:50)
[2021-03-08] MEDS: DOXYCYCLINE 100MG TABLET PO SCH ×2 (09:51→19:54)
[2021-03-08] MEDS: ASCORBIC ACID 500 MG TABLET PO SCH ×2 (09:51→17:14)
[2021-03-08] MEDS: THIAMINE 100MG TABLET PO SCH (09:51)
[2021-03-08] MEDS: FOLIC ACID 1 MG TABLET PO SCH (09:51)
[2021-03-08] MEDS: FUROSEMIDE 20 MG/2 ML IV SCH (09:52)
[2021-03-08] MEDS: ASPIRIN 81 MG TABLET EC PO SCH (09:53)
[2021-03-08 13:52] VITALS: BP 120/69
[2021-03-08] MEDS: ENOXAPARIN 40 MG/0.4 ML SQ SCH (19:55)
[2021-03-08 19:59] VITALS: BP 119/61
[2021-03-09 01:17] VITALS: BP 152/66
[2021-03-09] MEDS: OMEPRAZOLE 20 MG CAPSULE.DR PO SCH ×2 (05:40→16:44)
[2021-03-09] MEDS: GABAPENTIN 300 MG CAPSULE PO SCH ×4 (05:40→20:44)
[2021-03-09 07:25] VITALS: BP 143/65
[2021-03-09] MEDS: DEXAMETHASONE 4 MG/ML, 1ML IVPush SCH (09:00)
[2021-03-09] MEDS ORDERED: LORazepam 2 MG/ML, 1ML ONE (09:02)
[2021-03-09] MEDS: FUROSEMIDE 20 MG/2 ML IV SCH (09:03)
[2021-03-09] MEDS: CHOLECALCIFEROL 5,000u TAB PO SCH (09:06)
[2021-03-09] MEDS: ISOSORBIDE DINITRATE 30 MG TABLET PO SCH (09:06)
[2021-03-09] MEDS: ZINC SULFATE 220 MG CAPSULE PO SCH (09:06)
[2021-03-09] MEDS: FOLIC ACID 1 MG TABLET PO SCH (09:06)
[2021-03-09] MEDS: DOXYCYCLINE 100MG TABLET PO SCH ×2 (09:06→20:44)
[2021-03-09] MEDS: ASCORBIC ACID 500 MG TABLET PO SCH ×2 (09:06→16:41)
[2021-03-09] MEDS: ASPIRIN 81 MG TABLET EC PO SCH (09:06)
[2021-03-09] MEDS: ACETAMINOPHEN 325 MG TABLET PO PRN (09:06)
[2021-03-09] MEDS: DOCUSATE 100 MG CAPSULE PO SCH ×2 (09:07→20:44)
[2021-03-09] MEDS: BENZONATATE 100 MG CAPSULE PO SCH ×3 (09:07→20:44)
[2021-03-09] MEDS: THIAMINE 100MG TABLET PO SCH (09:07)
[2021-03-09] MEDS: ROPINIROLE 1MG TABLET PO SCH (09:07)
[2021-03-09] MEDS: POTASSIUM CHLORIDE 20 MEQ TAB.ER.PRT PO SCH (09:07)
[2021-03-09 09:13] LABS: BASOPHILS % (AUTO) 0 % (0-1); EOSINOPHILS % (AUTO) 0 % (1-7); LYMPHOCYTES % (AUTO) 9 % (22-44); MEAN CORPUSCULAR HEMOGLOBIN 30.7 pg (27.0-34.8); MEAN PLATELET VOLUME 7.6 fL (7.4-10.4); MONOCYTES % (AUTO) 4 % (2-9); NEUTROPHILS % (AUTO) 87 % (42-75); PLATELET COUNT 332 x10^3/uL (130-400); RED BLOOD COUNT 4.42 x10^6/uL (3.82-5.3); RED CELL DISTRIBUTION WIDTH 13.4 % (9.6-15.2)
[2021-03-09 09:22] LABS: ALANINE AMINOTRANSFERASE 40 U/L (12-78); ALBUMIN 2.5 g/dL (3.4-5.0); ANION GAP 7 mmol/L (5-15); CALCIUM 8.4 mg/dL (8.5-10.1); CHLORIDE 103 mmol/L (98-107); CREATININE 0.54 mg/dL (0.55-1.02)
[2021-03-09 09:24] LABS: ALKALINE PHOSPHATASE 96 U/L (45-117); BILIRUBIN,TOTAL 0.6 mg/dL (0.2-1.0); TOTAL PROTEIN 6.7 g/dL (6.4-8.2)
[2021-03-09] MEDS ORDERED: LORazepam 2 MG/ML, 1ML IVPush ONE (09:30)
[2021-03-09 12:42] VITALS: BP 94/45
[2021-03-09] MEDS: GUAIFENESIN/DM 200-20MG, 10ML UDC PO SCH ×2 (13:44→18:59)
[2021-03-09] MEDS ORDERED: OMNIPAQUE 350 MG/ML, 100ML BOTTLE ONE (14:15)
[2021-03-09] MEDS ORDERED: LORazepam 2 MG/ML, 1ML IVPush PRN (17:00)
[2021-03-09 19:53] VITALS: BP 133/76
[2021-03-09] MEDS: ENOXAPARIN 40 MG/0.4 ML SQ SCH (20:44)
[2021-03-10 01:23] VITALS: BP 159/75
[2021-03-10] MEDS: GUAIFENESIN/DM 200-20MG, 10ML UDC PO SCH ×5 (02:10→19:20)
[2021-03-10] MEDS: OMEPRAZOLE 20 MG CAPSULE.DR PO SCH ×2 (05:21→18:19)
[2021-03-10] MEDS: GABAPENTIN 300 MG CAPSULE PO SCH ×4 (05:21→20:33)
[2021-03-10 07:55] VITALS: BP 110/66
[2021-03-10] MEDS: FUROSEMIDE 20 MG/2 ML IV SCH (10:27)
[2021-03-10] MEDS: DEXAMETHASONE 4 MG/ML, 1ML IVPush SCH (10:27)
[2021-03-10] MEDS: ZINC SULFATE 220 MG CAPSULE PO SCH (10:28)
[2021-03-10] MEDS: DOXYCYCLINE 100MG TABLET PO SCH ×2 (10:28→20:33)
[2021-03-10] MEDS: THIAMINE 100MG TABLET PO SCH (10:28)
[2021-03-10] MEDS: CHOLECALCIFEROL 5,000u TAB PO SCH (10:28)
[2021-03-10] MEDS: ASCORBIC ACID 500 MG TABLET PO SCH ×2 (10:28→18:19)
[2021-03-10] MEDS: BENZONATATE 100 MG CAPSULE PO SCH ×3 (10:28→20:33)
[2021-03-10] MEDS: POTASSIUM CHLORIDE 20 MEQ TAB.ER.PRT PO SCH (10:29)
[2021-03-10] MEDS: ISOSORBIDE DINITRATE 30 MG TABLET PO SCH (10:29)
[2021-03-10] MEDS: FOLIC ACID 1 MG TABLET PO SCH (10:29)
[2021-03-10] MEDS: ROPINIROLE 1MG TABLET PO SCH (10:30)
[2021-03-10] MEDS: ASPIRIN 81 MG TABLET EC PO SCH (10:30)
[2021-03-10] MEDS: DOCUSATE 100 MG CAPSULE PO SCH ×2 (10:30→20:33)
[2021-03-10 12:57] VITALS: BP 124/72
[2021-03-10] MEDS ORDERED: BISACODYL 10 MG SUPP PR PRN (15:00)
[2021-03-10] MEDS ORDERED: POLYETHYLENE GLYCOL 17 GM PACKET NG ONE (15:00)
[2021-03-10] MEDS ORDERED: POLYETHYLENE GLYCOL 17 GM PACKET PO ONE (15:00)
[2021-03-10 19:03] VITALS: BP 118/70
[2021-03-10] MEDS: ENOXAPARIN 40 MG/0.4 ML SQ SCH (20:33)
[2021-03-10 23:20] VITALS: BP 95/56
[2021-03-11] MEDS: GUAIFENESIN/DM 200-20MG, 10ML UDC PO SCH ×5 (01:20→21:41)
[2021-03-11] MEDS: GABAPENTIN 300 MG CAPSULE PO SCH ×5 (06:00→20:59)
[2021-03-11] MEDS: OMEPRAZOLE 20 MG CAPSULE.DR PO SCH ×2 (06:01→17:31)
[2021-03-11] MEDS: DOCUSATE 100 MG CAPSULE PO SCH ×2 (07:41→20:47)
[2021-03-11 10:31] VITALS: BP 115/62
[2021-03-11] MEDS: ROPINIROLE 1MG TABLET PO SCH (10:33)
[2021-03-11] MEDS: BENZONATATE 100 MG CAPSULE PO SCH ×3 (10:34→20:58)
[2021-03-11] MEDS: ASCORBIC ACID 500 MG TABLET PO SCH ×2 (10:34→17:31)
[2021-03-11] MEDS: ISOSORBIDE DINITRATE 30 MG TABLET PO SCH (10:34)
[2021-03-11] MEDS: DOXYCYCLINE 100MG TABLET PO SCH ×2 (10:34→20:58)
[2021-03-11] MEDS: POTASSIUM CHLORIDE 20 MEQ TAB.ER.PRT PO SCH (10:34)
[2021-03-11] MEDS: ASPIRIN 81 MG TABLET EC PO SCH (10:34)
[2021-03-11] MEDS: ZINC SULFATE 220 MG CAPSULE PO SCH (10:34)
[2021-03-11] MEDS: CHOLECALCIFEROL 5,000u TAB PO SCH (10:35)
[2021-03-11] MEDS: FOLIC ACID 1 MG TABLET PO SCH (10:35)
[2021-03-11] MEDS: THIAMINE 100MG TABLET PO SCH (10:35)
[2021-03-11] MEDS: DEXAMETHASONE 4 MG/ML, 1ML IVPush SCH (10:36)
[2021-03-11] MEDS: FUROSEMIDE 20 MG/2 ML IV SCH (10:36)
[2021-03-11 14:04] VITALS: BP 92/59
[2021-03-11 14:46] LABS: FIO2 95 %
[2021-03-11 19:26] VITALS: BP 110/57
[2021-03-11] MEDS: ENOXAPARIN 40 MG/0.4 ML SQ SCH (20:59)
[2021-03-12 01:29] VITALS: BP 163/73
[2021-03-12] MEDS: GABAPENTIN 300 MG CAPSULE PO SCH ×4 (05:21→21:00)
[2021-03-12] MEDS: OMEPRAZOLE 20 MG CAPSULE.DR PO SCH ×2 (05:21→16:56)
[2021-03-12 07:23] LABS: BASOPHILS % (AUTO) 0 % (0-1); EOSINOPHILS % (AUTO) 0 % (1-7); LYMPHOCYTES % (AUTO) 8 % (22-44); MEAN CORPUSCULAR HEMOGLOBIN 30.5 pg (27.0-34.8); MEAN CORPUSCULAR HGB CONC 33.9 g/dL (32.4-35.8); MEAN PLATELET VOLUME 7.8 fL (7.4-10.4); MONOCYTES % (AUTO) 4 % (2-9); NEUTROPHILS % (AUTO) 89 % (42-75); PLATELET COUNT 274 x10^3/uL (130-400); RED BLOOD COUNT 4.11 x10^6/uL (3.82-5.3); RED CELL DISTRIBUTION WIDTH 13.6 % (9.6-15.2)
[2021-03-12 07:26] LABS: HCT (SEDRATE) 37.3 % (34.6-47.8)
[2021-03-12 07:30] LABS: ALBUMIN 2.3 g/dL (3.4-5.0); ANION GAP 8 mmol/L (5-15); CALCIUM 8.8 mg/dL (8.5-10.1); CHLORIDE 102 mmol/L (98-107)
[2021-03-12 07:37] LABS: ALANINE AMINOTRANSFERASE 64 U/L (12-78); ALKALINE PHOSPHATASE 92 U/L (45-117); BILIRUBIN,TOTAL 0.5 mg/dL (0.2-1.0); CREATININE 0.61 mg/dL (0.55-1.02); TOTAL PROTEIN 6.7 g/dL (6.4-8.2)
[2021-03-12 07:48] LABS: D-DIMER 1.24 ug/mlFEU (0.00-0.52)
[2021-03-12 07:57] VITALS: BP 126/66
[2021-03-12] MEDS ORDERED: SODIUM CHLORIDE 0.9%, 250ML IVBOLUS ONE (08:00)
[2021-03-12] MEDS: GUAIFENESIN/DM 200-20MG, 10ML UDC PO SCH ×3 (08:30→20:30)
[2021-03-12] MEDS: DOCUSATE 100 MG CAPSULE PO SCH ×2 (08:31→21:00)
[2021-03-12] MEDS: ZINC SULFATE 220 MG CAPSULE PO SCH (08:43)
[2021-03-12] MEDS: ASPIRIN 81 MG TABLET EC PO SCH (08:43)
[2021-03-12] MEDS: POTASSIUM CHLORIDE 20 MEQ TAB.ER.PRT PO SCH (08:43)
[2021-03-12] MEDS: THIAMINE 100MG TABLET PO SCH (08:44)
[2021-03-12] MEDS: DOXYCYCLINE 100MG TABLET PO SCH (08:44)
[2021-03-12] MEDS: ASCORBIC ACID 500 MG TABLET PO SCH (08:44)
[2021-03-12] MEDS: BENZONATATE 100 MG CAPSULE PO SCH ×3 (08:44→20:59)
[2021-03-12] MEDS: ISOSORBIDE DINITRATE 30 MG TABLET PO SCH (08:44)
[2021-03-12] MEDS: CHOLECALCIFEROL 5,000u TAB PO SCH (08:44)
[2021-03-12] MEDS: ROPINIROLE 1MG TABLET PO SCH (08:45)
[2021-03-12] MEDS: FOLIC ACID 1 MG TABLET PO SCH (08:45)
[2021-03-12] MEDS: DEXAMETHASONE 4 MG/ML, 1ML IVPush SCH (08:47)
[2021-03-12 09:23] LABS: CHLORIDE,URINE RANDOM 36 mmol/L; POTASSIUM,URINE RANDOM 31 mmol/L; SODIUM,URINE RANDOM 42 mmol/L
[2021-03-12 12:59] VITALS: BP 109/58
[2021-03-12] MEDS: ACETAMINOPHEN 325 MG TABLET PO PRN (16:56)
[2021-03-12 20:33] VITALS: BP 131/73
[2021-03-12] MEDS: ENOXAPARIN 40 MG/0.4 ML SQ SCH (20:59)
[2021-03-13] MEDS: GUAIFENESIN/DM 200-20MG, 10ML UDC PO SCH ×5 (02:04→19:35)
[2021-03-13 03:07] VITALS: BP 139/60
[2021-03-13] MEDS: OMEPRAZOLE 20 MG CAPSULE.DR PO SCH ×2 (05:07→16:00)
[2021-03-13] MEDS: GABAPENTIN 300 MG CAPSULE PO SCH ×4 (05:07→21:00)
[2021-03-13 05:33] LABS: MEAN CORPUSCULAR HEMOGLOBIN 30.6 pg (27.0-34.8); MEAN CORPUSCULAR HGB CONC 33.7 g/dL (32.4-35.8); MEAN PLATELET VOLUME 8.2 fL (7.4-10.4); PLATELET COUNT 289 x10^3/uL (130-400); RED BLOOD COUNT 4.42 x10^6/uL (3.82-5.3); RED CELL DISTRIBUTION WIDTH 13.5 % (9.6-15.2)
[2021-03-13 05:50] LABS: CHLORIDE 102 mmol/L (98-107)
[2021-03-13 05:53] LABS: D-DIMER 1.89 ug/mlFEU (0.00-0.52)
[2021-03-13 06:03] LABS: ALANINE AMINOTRANSFERASE 79 U/L (12-78); ALBUMIN 2.5 g/dL (3.4-5.0); ALKALINE PHOSPHATASE 100 U/L (45-117); ANION GAP 5 mmol/L (5-15); BILIRUBIN,TOTAL 0.5 mg/dL (0.2-1.0); CALCIUM 9.4 mg/dL (8.5-10.1); CREATININE 0.59 mg/dL (0.55-1.02); TOTAL PROTEIN 7.2 g/dL (6.4-8.2)
[2021-03-13 06:10] LABS: <PLATELET ESTIMATE> ADEQUATE; <PLT MORPHOLOGY> NORMAL PLT MORPH; <RBC MORPHOLOGY> NORMAL; LYMPH#(MANUAL) 1.09 x10^3/uL (1-3.4); LYMPHS% (MANUAL) 12 % (22-44); METAMYELOCYTES# (MANUAL) 0.09 x10^3/uL (0-0); METAMYELOCYTES% (MANUAL) 1 % (0-1); MONOS#(MANUAL) 0.36 x10^3/uL (0.3-2.7); MONOS% (MANUAL) 4 % (2-9); SEG#(MANUAL) 7.55 x10^3/uL (1.8-6.8); SEGS% (MANUAL) 83 % (42-75)
[2021-03-13 07:01] LABS: HCT (SEDRATE) 40.1 % (34.6-47.8)
[2021-03-13] MEDS: DOCUSATE 100 MG CAPSULE PO SCH ×2 (07:58→21:00)
[2021-03-13] MEDS: FOLIC ACID 1 MG TABLET PO SCH (08:32)
[2021-03-13] MEDS: ROPINIROLE 1MG TABLET PO SCH (08:32)
[2021-03-13] MEDS: ASPIRIN 81 MG TABLET EC PO SCH (08:32)
[2021-03-13] MEDS: BENZONATATE 100 MG CAPSULE PO SCH ×4 (08:32→22:00)
[2021-03-13] MEDS: ISOSORBIDE DINITRATE 30 MG TABLET PO SCH (08:32)
[2021-03-13 08:39] VITALS: BP 98/66
[2021-03-13 13:10] VITALS: BP 107/60
[2021-03-13 21:00] VITALS: BP 125/55
[2021-03-13] MEDS: ENOXAPARIN 40 MG/0.4 ML SQ SCH (21:53)
[2021-03-14 00:37] VITALS: BP 113/61
[2021-03-14] MEDS: ACETAMINOPHEN 325 MG TABLET PO PRN (01:52)
[2021-03-14] MEDS: GUAIFENESIN/DM 200-20MG, 10ML UDC PO SCH ×4 (02:30→20:30)
[2021-03-14] MEDS ORDERED: LORazepam 2 MG/ML, 1ML IVPush ONE (02:30)
[2021-03-14] MEDS: GABAPENTIN 300 MG CAPSULE PO SCH ×4 (05:30→21:44)
[2021-03-14] MEDS: OMEPRAZOLE 20 MG CAPSULE.DR PO SCH ×2 (05:31→16:00)
[2021-03-14 08:46] VITALS: BP 102/55
[2021-03-14] MEDS: FOLIC ACID 1 MG TABLET PO SCH (08:47)
[2021-03-14] MEDS: ASPIRIN 81 MG TABLET EC PO SCH (08:47)
[2021-03-14] MEDS: ROPINIROLE 1MG TABLET PO SCH (08:47)
[2021-03-14] MEDS: ISOSORBIDE DINITRATE 30 MG TABLET PO SCH (08:47)
[2021-03-14] MEDS: DOCUSATE 100 MG CAPSULE PO SCH ×2 (08:47→21:44)
[2021-03-14] MEDS: FUROSEMIDE 20 MG/2 ML IV SCH (08:47)
[2021-03-14] MEDS: BENZONATATE 100 MG CAPSULE PO SCH ×3 (08:48→21:44)
[2021-03-14 13:10] VITALS: BP 114/75
[2021-03-14 18:53] VITALS: BP 100/75
[2021-03-14] MEDS: ENOXAPARIN 40 MG/0.4 ML SQ SCH (21:44)
[2021-03-15 00:52] VITALS: BP 115/67
[2021-03-15] MEDS: GUAIFENESIN/DM 200-20MG, 10ML UDC PO SCH ×4 (02:06→20:19)
[2021-03-15] MEDS: ACETAMINOPHEN 325 MG TABLET PO PRN (03:03)
[2021-03-15] MEDS: GABAPENTIN 300 MG CAPSULE PO SCH ×4 (05:07→20:18)
[2021-03-15] MEDS: OMEPRAZOLE 20 MG CAPSULE.DR PO SCH ×2 (05:07→17:25)
[2021-03-15 07:40] VITALS: BP 119/72
[2021-03-15 07:55] LABS: ALBUMIN 2.2 g/dL (3.4-5.0); ANION GAP 10 mmol/L (5-15); CALCIUM 8.3 mg/dL (8.5-10.1); CHLORIDE 100 mmol/L (98-107)
[2021-03-15 07:56] LABS: BASOPHILS % (AUTO) 0 % (0-1); EOSINOPHILS % (AUTO) 1 % (1-7); LYMPHOCYTES % (AUTO) 12 % (22-44); MEAN CORPUSCULAR HEMOGLOBIN 30.6 pg (27.0-34.8); MEAN CORPUSCULAR HGB CONC 33.9 g/dL (32.4-35.8); MONOCYTES % (AUTO) 4 % (2-9); NEUTROPHILS % (AUTO) 82 % (42-75); PLATELET COUNT 247 x10^3/uL (130-400); RED BLOOD COUNT 4.23 x10^6/uL (3.82-5.3); RED CELL DISTRIBUTION WIDTH 13.9 % (9.6-15.2)
[2021-03-15 08:00] LABS: D-DIMER 2.63 ug/mlFEU (0.00-0.52)
[2021-03-15 08:03] LABS: ALANINE AMINOTRANSFERASE 53 U/L (12-78); ALKALINE PHOSPHATASE 95 U/L (45-117); BILIRUBIN,TOTAL 0.8 mg/dL (0.2-1.0); CREATININE 0.61 mg/dL (0.55-1.02); TOTAL PROTEIN 6.9 g/dL (6.4-8.2)
[2021-03-15 08:12] LABS: FIBRINOGEN > 713 mg/dL (200-340)
[2021-03-15] MEDS: ASPIRIN 81 MG TABLET EC PO SCH (09:20)
[2021-03-15] MEDS: FOLIC ACID 1 MG TABLET PO SCH (09:20)
[2021-03-15] MEDS: DOCUSATE 100 MG CAPSULE PO SCH ×2 (09:20→20:18)
[2021-03-15] MEDS: ISOSORBIDE DINITRATE 30 MG TABLET PO SCH (09:20)
[2021-03-15] MEDS: BENZONATATE 100 MG CAPSULE PO SCH ×3 (09:20→20:18)
[2021-03-15] MEDS: FUROSEMIDE 20 MG/2 ML IV SCH (09:21)
[2021-03-15] MEDS: ROPINIROLE 1MG TABLET PO SCH (09:21)
[2021-03-15 09:45] LABS: HCT (SEDRATE) 38.2 % (34.6-47.8)
[2021-03-15 14:00] VITALS: BP 107/65
[2021-03-15] MEDS: ENOXAPARIN 40 MG/0.4 ML SQ SCH (20:18)
[2021-03-15 20:22] VITALS: BP 90/47
[2021-03-16 02:07] VITALS: BP 97/49
[2021-03-16] MEDS: GUAIFENESIN/DM 200-20MG, 10ML UDC PO SCH ×2 (02:26→08:30)
[2021-03-16] MEDS: GABAPENTIN 300 MG CAPSULE PO SCH ×4 (05:45→20:35)
[2021-03-16] MEDS: OMEPRAZOLE 20 MG CAPSULE.DR PO SCH ×2 (05:45→16:27)
[2021-03-16 08:19] VITALS: BP 109/63
[2021-03-16] MEDS: BENZONATATE 100 MG CAPSULE PO SCH ×3 (09:08→20:35)
[2021-03-16] MEDS: DOCUSATE 100 MG CAPSULE PO SCH ×2 (09:08→20:34)
[2021-03-16] MEDS: ISOSORBIDE DINITRATE 30 MG TABLET PO SCH (09:08)
[2021-03-16] MEDS: ROPINIROLE 1MG TABLET PO SCH (09:08)
[2021-03-16] MEDS: FUROSEMIDE 20 MG/2 ML IV SCH (09:09)
[2021-03-16] MEDS: ASPIRIN 81 MG TABLET EC PO SCH (09:09)
[2021-03-16] MEDS: FOLIC ACID 1 MG TABLET PO SCH (09:09)
[2021-03-16] MEDS ORDERED: GUAIFENESIN/DM 200-20MG, 10ML UDC PO PRN (11:30)
[2021-03-16 13:56] VITALS: BP 109/62
[2021-03-16 20:30] VITALS: BP 103/56
[2021-03-16] MEDS: ENOXAPARIN 40 MG/0.4 ML SQ SCH (20:35)
[2021-03-17 02:26] VITALS: BP 115/68
[2021-03-17 05:47] LABS: BASOPHILS % (AUTO) 1 % (0-1); EOSINOPHILS % (AUTO) 2 % (1-7); LYMPHOCYTES % (AUTO) 11 % (22-44); MEAN CORPUSCULAR HEMOGLOBIN 30.6 pg (27.0-34.8); MEAN CORPUSCULAR HGB CONC 33.5 g/dL (32.4-35.8); MEAN PLATELET VOLUME 8.2 fL (7.4-10.4); MONOCYTES % (AUTO) 6 % (2-9); NEUTROPHILS % (AUTO) 81 % (42-75); PLATELET COUNT 209 x10^3/uL (130-400); RED BLOOD COUNT 4.02 x10^6/uL (3.82-5.3); RED CELL DISTRIBUTION WIDTH 13.7 % (9.6-15.2)
[2021-03-17 05:48] LABS: HCT (SEDRATE) 35.7 % (34.6-47.8)
[2021-03-17 05:56] LABS: ANION GAP 8 mmol/L (5-15); CALCIUM 8.4 mg/dL (8.5-10.1); CHLORIDE 104 mmol/L (98-107)
[2021-03-17] MEDS: OMEPRAZOLE 20 MG CAPSULE.DR PO SCH ×2 (05:57→14:10)
[2021-03-17] MEDS: GABAPENTIN 300 MG CAPSULE PO SCH ×3 (05:57→14:10)
[2021-03-17 05:59] LABS: D-DIMER 2.09 ug/mlFEU (0.00-0.52)
[2021-03-17 06:00] LABS: FIBRINOGEN > 713 mg/dL (200-340)
[2021-03-17 06:03] LABS: ALANINE AMINOTRANSFERASE 46 U/L (12-78); ALKALINE PHOSPHATASE 87 U/L (45-117); BILIRUBIN,TOTAL 0.6 mg/dL (0.2-1.0); CREATININE 0.62 mg/dL (0.55-1.02)
[2021-03-17 08:15] VITALS: BP 114/64
[2021-03-17] MEDS: ISOSORBIDE DINITRATE 30 MG TABLET PO SCH (09:23)
[2021-03-17] MEDS: FUROSEMIDE 20 MG/2 ML IV SCH (09:24)
[2021-03-17] MEDS: ASPIRIN 81 MG TABLET EC PO SCH (09:24)
[2021-03-17] MEDS: FOLIC ACID 1 MG TABLET PO SCH (09:24)
[2021-03-17] MEDS: DOCUSATE 100 MG CAPSULE PO SCH (09:25)
[2021-03-17] MEDS: ROPINIROLE 1MG TABLET PO SCH (09:25)
[2021-03-17] MEDS: BENZONATATE 100 MG CAPSULE PO SCH ×2 (09:25→14:10)
[2021-03-17] MEDS ORDERED: CHOL10003 PO (11:58)
[2021-03-17 14:01] VITALS: BP 113/62
== END 2021-03-17 15:20 | DRG 871 ==
LOC: ED 14:55 → EDIP 16:59 → SUATTDRO 17:07 → 3N 19:16 → 5SO 03-01 08:13 → 3N 03-01 08:16 → 5SO 03-01 10:27
PROVIDERS: ADMIT Hospitalist; ATTEND Hospitalist
PROC: XW033E5 Introduction of Remdesivir Anti-infective into Peripheral Vein, Percutaneous Approach, New Technology Group 5 (ICD-10-PCS; principal; 2021-03-01)
PROC: 5A0945A Assistance with Respiratory Ventilation, 24-96 Consecutive Hours, High Flow/Velocity Cannula (ICD-10-PCS; 2021-03-08)
DX: A41.89 Other specified sepsis (principal); U07.1 COVID-19; J12.82 Pneumonia due to coronavirus disease 2019; E87.1 Hypo-osmolality and hyponatremia; D84.9 Immunodeficiency, unspecified; K75.4 Autoimmune hepatitis; G25.81 Restless legs syndrome; R26.0 Ataxic gait; F41.9 Anxiety disorder, unspecified; I10 Essential (primary) hypertension; I25.10 Atherosclerotic heart disease of native coronary artery without angina pectoris; K59.00 Constipation, unspecified; Z66 Do not resuscitate; I44.1 Atrioventricular block, second degree; Z60.2 Problems related to living alone; Z88.2 Allergy status to sulfonamides; Z87.891 Personal history of nicotine dependence; Z95.1 Presence of aortocoronary bypass graft; Z88.8 Allergy status to other drugs, medicaments and biological substances
CPT/HCPCS: 36415; 36600; 70450; 71045; 71275; 74018; 80048; 80053; 80069; 82040; 82436; 82728; 82803; 82962; 83605; 83615; 83735; 83880; 84100; 84133; 84145; 84300; 85025; 85379; 85384; 85651; 86140; 87040; 93005; 93306; 93926; 96365; 96375; G0378; J0696; J1100; J1650; J2405; J7060; Q0162; Q9967; U0005; J1940; J2060; J7030; J7050; J7517; U0003